=== PATIENT | male | born 2000 | race Caucasian/White ===

== ENCOUNTER 2024-05-27 08:19 | Outpatient (CLI) | payer OTHER, SELFPAY ==
--- OUTSIDE RECORDS SUMMARY | 2024-05-27 08:32 | XMS_ITS | Encounter Summary ---
Author Organization [facility] Address [address] [place] [address] Phone Care Team Providers Care Lumber Racker Name Role Phone Monique Brink MD Primary Care Provider [phone]- [phone] Encounter Details Date Type Department Care Team (Late st Contact Info) Description 04/23/2024 Lab Requisition [facility] [address] [place] [id number] Edouard Chacko MD [address] [place] [phone] [phone] Contact with and (suspected) exposure to unspecified communicable disease; Acute cough Social History Tobacco Use Types Packs/Day Years Used Date Smoking Tobacco: Never Smokeless Tobacco: Never Alcohol Use Standard Drinks/Week Comments Never 0 (1 standard drink = 0.6 oz pur e alcohol) Sex and Gender Information Value Date Recorded Sex Assigned at Not on file Legal Sex Male 10:14 PM CDT Gender Identity Not on file Sexual Orientation Not on file documented as of this encounter Plan of Treatment Not on file documented as of this encounter Procedures Procedure Name Priority Date/Time Associated Diagnosis Comments RSV,SARS-COV-2,INF LUENZA A&B BY PCR Routine 04/23/2024 6:33 AM BURGLAR ALARM INSTALLER Contact with and (suspected) exposure to unspecified communicable disease Acute cough documented in this encounter Results * (ABNORMAL) RSV,SARS-COV-2,INFLUENZA A&B BY PCR (04/23/2024 6:33 AM BURGLAR ALARM INSTALLER) FLU A Positive(A) Negative, Error 04/23/2024 9:14 AM BURGLAR ALARM INSTALLER [facility] FLU B Negative Negative 04/23/2024 9:14 AM BURGLAR ALARM INSTALLER [facility] RESP SYNC VIRUS Negative Negative 9:14 AM BURGLAR ALARM INSTALLER [facility] SARSCOV2 NOT DETECTED (Reference Range for this test is Not Detected) 04/23/2024 9:14 AM BURGLAR ALARM INSTALLER [facility] Comment:This test was perfor med by a Reverse Lime Filter Operator PCR Method. Swab Non-Phlebotomy Collection / Unknown 04/23/2024 6:33 AM BURGLAR ALARM INSTALLER 04/23/2024 8:18 AM BURGLAR ALARM INSTALLER Edouard Chacko MD MICROBIOLOGY - GENERAL ORDERAB LES Final Result [facility] [place] [address] documented in this encounter Visit Diagnoses Diagnosis Contact with and (suspected) exposure to unspecified communicable disease Acute cough documented in this encounter Additional Health Concerns Infection Onset Date Last Indicated Resolved Time Influenza 04/23/2024 04/23/2024 04/30/2024 12:1 8 AM BURGLAR ALARM INSTALLER documented as of this encounter Care Teams Lumber Racker Relationship Specialty Start Date End Date Monique Brink MD [address] [place] [id number] PCP - General Family Medicine 12/05/23 documented as of this encounter
--- OUTSIDE RECORDS SUMMARY | 2024-05-27 08:32 | XMS_ITS | Encounter Summary ---
Author Organization [facility] Address [address] [place] [address] Phone Care Team Providers Care Consultant Education Name Role Phone Moniqeu Brink MD Primary Care Provider [phone]- [phone] Encounter Details Date Type Department Care Team (Latest Contact Info) Description 01/30/2024 Lab Requisition [facility] [address] [place] [id number] Monique Brink MD [address] [facility] [place] [address] Mental disorder, not otherwise specified; Unspecified disorder of psychological development; Unspecified intellectual disabilities Social History Tobacco Use Types Packs/Day Years [...] on file documented as of this encounter Progress Notes * Monique Brink MD - 01/30/2024 8:16 AM CST Your thyroid tests and your cholesterol and triglycerides were all normal. TOOLER documented in this encounter Plan of Treatment Not on file documented as of this encounter Procedures Procedure Name Priority Date/Time Associated Diagnosis Comments THYROXINE (T4) TOTAL Routine 01/30/2024 6:48 AM GOLD TOOLER Mental disorder, not otherwise specified Unspecified disorder of psychological development Unspecified intellectual disabilities TRIIODOTHYRININE (T3) TOTAL Routine 01/30/2024 6:48 AM GOLD TOOLER Mental disorder, not otherwise specified Unspecified disorder of psychological development Unspecified intellectual disabilities LIPID PANEL Routine 01/30/2024 6:48 AM GOLD TOOLER Mental disorder, not otherwise specified Unspecified disorder of psychological development Unspecified intellectual disabilities documented in this encounter Results * THYROXINE (T4) TOTAL (01/30/2024 6:48 AM GOLD TOOLER) T4 7.6 5.0 - 11.0 mcg/dL 01/30/2024 9:38 AM GOLD TOOLER [facility] Blood Venipuncture / Unknown 01/30/2024 6:48 AM GOLD TOOLER 01/30/2024 8:17 AM GOLD TOOLER Monique Brink MD CHEMISTRY ORDERABLES Final Result [facility] [place] [address] * TRIIODOTHYRININE (T3) TOTAL (01/30/2024 6:48 AM GOLD TOOLER) T3 112 40 - 193 ng/dL 01/30/2024 3:14 PM GOLD TOOLER [facility] Blood Venipuncture / Unknown 01/30/2024 6:48 AM GOLD TOOLER 01/30/2024 8:17 AM GOLD TOOLER Monique Brink MD CHEMISTRY ORDERABLES Final Result [facility] [address] [place] [address], * LIPID PANEL (01/30/2024 6:48 AM GOLD TOOLER) CHOLESTEROL 144 <200 mg/dL 01/30/2024 9:26 AM GOLD TOOLER [facility] TRIGLYCERIDES 71 <150 mg/dL 01/30/2024 9:26 AM GOLD TOOLER [facility] HDL CHOLESTEROL 46 >40 mg/dL 9:26 AM GOLD TOOLER [facility] LDL 84 <130 mg/dL 01/30/2024 9:26 AM GOLD TOOLER [facility] VLDL 14 10 - 50 mg/dL 01/30/2024 9:26 AM GOLD TOOLER [facility] CHOL/HDL RATIO 3.1 0.0 - 4.4 01/30/2024 9:26 AM GOLD TOOLER [facility] NON-HDL CHOLESTEROL 98 <130 mg/dL 01/30/2024 9:26 AM GOLD TOOLER [facility] Blood Venipuncture / Unknown 01/30/2024 6:48 AM GOLD TOOLER 01/30/2024 8:17 AM GOLD TOOLER us Monique Brink MD CHEMISTRY ORDERABLES Final Result [facility] [place] [address] documented in this encounter Visit Diagnoses Diagnosis Mental disorder, not otherwise specified Unspecified disorder of psychological development Unspecified intellectual disabilities documented in this encounter Additional Health Concerns Infection Onset Date Last Indicated Resolved Time Influenza 04/23/2024 04/23/2024 04/30/2024 12:1 8 AM GOLD TOOLER documented as of this encounter Care Teams Consultant Education Relationship Specialty Start Date End Date Monique Brink MD [address] [place] [id number] PCP - General Family Medicine 12/05/23 documented as of this encounter
--- OUTSIDE RECORDS SUMMARY | 2024-05-27 08:32 | XMS_ITS | Continuity of Care Document ---
Author Organization [facility] Address [address] [place] [address] Phone Care Team Providers Care Cell Changer Name Role Phone Jarrod Fraga MD Unavailable Unavailable Allergies, Adverse Reactions, Alerts Substance Reaction Status Criticality No Known Allergies Active No Inform ation Medications Medication Instructions Dosage Effective Dates (start - stop) Status Comments Qvar RediHaler 40 mcg/actuation HFA breath activated aerosol inhale 2 puff by inhalation route 2 times every day 80 MCG - Active Ventolin HFA 90 mcg/actuation aerosol inhaler inhale 2 puff by inhalation route every 4 - 6 hours as needed - Active cetirizine 10 mg tablet take 1 tablet (1 0MG) by oral route every day - Active Aerochamber Administer inhaler a s directed - Active levothyroxine 75 mcg tablet take 1 tablet by oral route every day 75 MCG - Active Abilify 5 mg tablet take 1 tablet by ora l route 2 times every day 5 MG - Active lithium carbonate 600 mg capsule take 1 capsule (600MG) by oral route 3 times every day 600 MG - Active Procedures Procedure Date Est (Level 4) OFFICE/OUTPATIENT VISIT Fe Est (Level 3) OFFICE/OUTPATIENT VISIT Ja Est (Level 4) OFFICE/OUTPATIENT VISIT Se Est (Level 4) OFFICE/OUTPATIENT VISIT Ma Health Risk Assesment Patient Focused Ne PREVENTIVE COUNSELING, INDIV Est (Level 4) OFFICE/OUTPATIENT VISIT Au Flow Volume Loop Mouth piece Health Risk Assesment Patient Focused Au Est (Level 4) OFFICE/OUTPATIENT VISIT Fe Health Risk Assesment Patient Focused Est (Level 4) OFFICE/OUTPATIENT VISIT Au Mouth piece PREVENTIVE COUNSELING, INDIV Flow Volume Loop Health Risk Assesment Patient Focused Au Est (Level 4) OFFICE/OUTPATIENT VISIT Fe Health Risk Assesment Patient Focused Fe Est (Level 4) OFFICE/OUTPATIENT VISIT Au Flow Volume Loop Health Risk Assesment Patient Focused Au Mouth piece PREVENTIVE COUNSELING, INDIV Est (Level 4) OFFICE/OUTPATIENT VISIT Flow Volume Loop Est (Level 4) OFFICE/OUTPATIENT VISIT Flow Volume Loop Est (Level 4) OFFICE/OUTPATIENT VISIT Flow Volume Loop Est (Level 4) OFFICE/OUTPATIENT VISIT Flow Volume Loop Est (Level 4) OFFICE/OUTPATIENT VISIT Flow Volume Loop Est (Level 4) OFFICE/OUTPATIENT VISIT Flow Volume Loop Exhaled Nitric Oxide Louis Est (Level 4) OFFICE/OUTPATIENT VISIT De Est (Level 4) OFFICE/OUTPATIENT VISIT Pulmonary Function Screen Est (Level 4) OFFICE/OUTPATIENT VISIT Pulmonary Function Screen No Show/Missed Appointment Admin Inj Vaccine FLU VACCINE NO PRESERV 3 & > Pulmonary Function Screen Est (Level 4) OFFICE/OUTPATIENT VISIT Pulmonary Function Screen Est (Level 4) OFFICE/OUTPATIENT VISIT De Est (Level 4) OFFICE/OUTPATIENT VISIT Ju Pulmonary Function Screen Est (Level 4) OFFICE/OUTPATIENT VISIT Ja Est (Level 4) OFFICE/OUTPATIENT VISIT Au Pulmonary Function Screen Est (Level 4) OFFICE/OUTPATIENT VISIT Fe Est (Level 4) OFFICE/OUTPATIENT VISIT Se Admin Inj Vaccine FLU VACCINE NO PRESERV 3 & > Est (Level 4) OFFICE/OUTPATIENT VISIT Ap OFFICE/OUTPATIENT VISIT, EST OFFICE/OUTPATIENT VISIT, EST OFFICE/OUTPATIENT VISIT, EST OFFICE/OUTPATIENT VISIT, EST OFFICE/OUTPATIENT VISIT, EST Advance Directives Directive Yes / No Effective Date File Name No Information Encounters Encounter Description Practice Location Reason(s) For Visit Diagnoses Date Provider Providers Copied on Encounter Est (Level 4) OFFICE/OUTPA TIENT VISIT [facility], [address] [place] [address], [id number], tel:[phone] [facility] allergies and asthma (chief complaint) Perennial allergic rhinitisMild persistent asthma 3 Philly Garay. [address], [id number] , [place]. tel:[phone] Referring Provider: Joe Charles, [address] [facility] [address], [place], [address]. tel:[phone] Est (Level 3) OFFICE/OUTPA TIENT VISIT [facility], [address] [place] [address], [id number], tel:[phone] [facility] allergies and asthma (chief complaint) Mild persistent asthma 2 Philly Garay. [address], [id number] , . tel:[phone] Referring Provider: Kvng Alcantara, [address] [place] [address], [id number]. tel:[phone] [facility], [address] [place] [address], [id number], tel:[phone] [facility] No Information 2 Philly Garay. [address] [place] [address], [id number] , . tel:[phone] Referring Provider: Kvng Alcantara, [address] [place] [address], [address]. tel:[phone] Est (Level 4) OFFICE/OUTPA TIENT VISIT [facility], [address] [place] [address], [id number], tel:[phone] [facility] allergies and asthma (chief complaint) Mild persistent asthma Sep-0 0 Philly Garay. [address] [place] [address], [id number] , [place]. [phone] Referring Provider: Kvng Alcantara, [address] [place] [address], [address]. tel:[phone] Est (Level 4) OFFICE/OUTPA TIENT VISIT [facility], [address] [place] [address], [id number], tel:[phone] [facility] asthma and allergies (chief complaint) Mild persistent asthma Mar-0 0 Philly Garay. [address] [place] [address], [id number] , [place]. [phone] Referring Provider: Kvng Alcantara, [address] [place] [address], [address]. tel:[phone] Est (Level 4) OFFICE/OUTPA TIENT VISIT [facility], [address] [place] [address], [id number], tel:[phone] [facility] asthma (chief complaint) Moderate persistent asthma 9 Philly Garay. [address] [place] [address], [id number] , . tel:[phone] Referring Provider: Kvng Alcantara, [address] [place] [address], [address]. tel:[phone] Est (Level 4) OFFICE/OUTPA TIENT VISIT [facility], [address] [place] [address], [address] [place] [address], tel:[phone] [facility] AR and asthma (chief complaint) Allergic rhinitis, unspecifiedUnspe cified asthma, uncomplicated Fe 9 Philly Garay. [address] [place] [address], [address] [place] [address] , [place]. tel:[phone] Referring Provider: Kvng Alcantara, [address] [place] [address], [address]. tel:[phone] Est (Level 4) OFFICE/OUTPA TIENT VISIT [facility], [address] [place] [address], [id number], [place] tel:[phone] [facility] allergic rhinitis and athma (chief complaint) Allergic rhinitis, unspecifiedMild persistent asthma 8 Philly Garay. [address] [place] [address], [id number] , [place]. tel:[phone] Referring Provider: Kvng Alcantara, [address] [place] [address], [address]. tel:[phone] Est (Level 4) OFFICE/OUTPA TIENT VISIT [facility], [address] [place] [address], [id number], [place] tel:[phone] [facility] allergic rhinitis and asthma (chief complaint) Allergic rhinitis, unspecifiedUnspe cified asthma, uncomplicated Feb-0 8 Philly Garay. [address] [place] [address], [id number] , [place]. tel:[phone] Referring Provider: Kvng Alcantara, [address] [place], [address]. tel:[phone] Est (Level 4) OFFICE/OUTPA TIENT VISIT [facility], [address] [place] [address], [id number], tel:[phone] [facility] allergic rhinitis and asthma (chief complaint) Allergic rhinitis, unspecifiedUnspe cified asthma, uncomplicated 7 Philly Garay. [address] [place] [address], [id number] , [place]. tel:[phone] Referring Provider: Kvng Alcantara, [address] [place], [address]. tel:[phone] Est (Level 4) OFFICE/OUTPA TIENT VISIT [facility], [address] [place] [address], [id number], tel:[phone] [facility] allergic rhinitis and asthma (chief complaint) Upper respiratory infectionAllergi c rhinitis, unspecifiedUnspe cified asthma, uncomplicated 7 Philly Garay. [address] [place] [address], [id number] , [place]. tel:[phone] Referring Provider: Jesse Lozoya, [facility] [place], [address]. tel:[phone] Est (Level 4) OFFICE/OUTPA TIENT VISIT [facility], [address] [place] [address], [id number], [place] tel:[phone] [facility] allergies and asthma (chief complaint) Allergic rhinitis, unspecifiedMild persistent asthma 6 Philly Garay. [address] [place] [address], [id number] , [place]. tel:[phone] Referring Provider: Jesse Lozoya, [address] [place], [address]. tel:[phone] Est (Level 4) OFFICE/OUTPA TIENT VISIT [facility], [address] [place] [address], [id number], tel:[phone] [facility] allergic rhinitis and asthma (chief complaint) Upper respiratory infectionAllergi c rhinitis, unspecifiedModer ate persistent asthma 6 Philly Jarrod. [address] [place] [address], [id number] , [place]. tel: [phone] Referring Provider: Jesse Lozoya, [address] [place] [address], [address]. tel:[phone] Est (Level 4) OFFICE/OUTPA TIENT VISIT [facility], [address] [place] [address], [id number], tel:[phone] [facility] allergic rhinitis and asthma (chief complaint) Allergic rhinitis, cause unspecifiedAsthm a 5 Philly Garay. [address] [place] [address], [id number] , [place]. tel: [phone] Referring Provider: Jesse Lozoya, [address] [place] [address], [address]. tel:[phone] Est (Level 4) OFFICE/OUTPA TIENT VISIT [facility], [address] [place] [address], [id number], tel:[phone] [facility] Allergic rhinitis and asthma (chief complaint) Allergic rhinitis, cause unspecifiedAsthm a 5 Philly Garay. [address] [place] [address], [id number] , [place]. tel:[phone] Referring Provider: Jesse Lozoya, [address] [place] [address], [address]. tel:[phone] Est (Level 4) OFFICE/OUTPA TIENT VISIT [facility], [address] [place] [address], [id number], [place] tel:[phone] [facility] allergic rhinitis and asthma (chief complaint) Other conditions due to sex chromosome anomaliesAllergi c rhinitis, cause unspecifiedAsthm a 4 Philly Garay. [address] [place] [address], [id number] , . tel:[phone] Referring Provider: Jesse Lozoya, [address] [place] [address], [address]. tel:[phone] Est (Level 4) OFFICE/OUTPA TIENT VISIT [facility], [address] [place] [address], [id number], [place] tel:[phone] [facility] allergic rhinitis and asthma (chief complaint) Upper Respiratory Infection, AcuteAllergic rhinitis, cause unspecifiedAsthm a 3 Philly Garay. [address] [place] [address], [id number] , [place]. tel:[phone] Referring Provider: Jesse Lozoya, [address] [place] [address], [address]. tel:[phone] Est (Level 4) OFFICE/OUTPA TIENT VISIT [facility], [address] [place] [address], [id number], [place] tel:[phone] [facility] allergic rhinitis and asthma (chief complaint) Allergic rhinitis, cause unspecifiedAsthm a 3 Philly Gaary. [address] [place] [address], [id number] , [place]. tel:[phone] Referring Provider: Jesse Lozoya, [address] [place] [address], [address]. tel:[phone] Est (Level 4) OFFICE/OUTPA TIENT VISIT [facility], [address] [place] [address], [id number], [place] tel:[phone] [facility] allergic rhinitis (chief complaint)a sthma (chief complaint) Allergic rhinitis, cause unspecifiedAsthm a 3 Philly Garay. [address] [place] [address], [id number] , . tel:[phone] Referring Provider: Jesse Lozoya, [address] [place] [address], [address]. tel:[phone] [facility], [address] [place] [address], [address] [place] [address], tel:[phone] [facility] No Information 2 Philly Garay. [address] [place] [address], [address] [place] [address] , . tel:[phone] Referring Provider: Jesse Lozoya, [address] [place] [address], [address]. tel:[phone] [facility], [address] [place] [address], [address] [place] [address], tel:[phone] [facility] No Information 2 Philly Garay. [address] [place] [address], [address] [place] [address] , . tel:[phone] Referring Provider: Jesse Lozoya, [address] [place] [address], [address]. tel:[phone] Est (Level 4) OFFICE/OUTPA TIENT VISIT [facility], [address] [place] [address], [id number], tel:[phone] [facility] allergies (chief complaint)a sthma (chief complaint) OtherAllergic rhinitis, cause unspecifiedASTHM A,UNSPECIFIED TYPE, UNSPECIFIEDRash and other nonspecific skin eruption 2 Philly Garay. [address] [place] [address], [id number] , . tel:[phone] Referring Provider: Jesse Lozoya, [address] [place] [address], [address]. tel:[phone] Est (Level 4) OFFICE/OUTPA TIENT VISIT [facility], [address] [place] [address], [id number], tel:[phone] [facility] allergies (chief complaint)a sthma (chief complaint) Allergic rhinitis, cause unspecifiedASTHM A,UNSPECIFIED TYPE, UNSPECIFIED 1 Philly Garay. [address] [place] [address], [address], [address] [place] [address] , . tel:[phone] Referring Provider: Jesse Lozoya, [address] [place] [address], [address]. tel:[phone] Est (Level 4) OFFICE/OUTPA TIENT VISIT [facility], [address] [place] [address], [address] [place] [address], tel:[phone] [facility] allergies (chief complaint)a sthma (chief complaint)e czema (chief complaint) Allergic rhinitis, cause unspecifiedASTHM A,UNSPECIFIED TYPE, UNSPECIFIEDOther atopic dermatitis and related conditions 1 Philly Garay. [address] [place] [address], [address], [address] [place] [address] , . tel:[phone] Referring Provider: Jesse Lozoya, [address] [place] [address], [address]. tel:[phone] Est (Level 4) OFFICE/OUTPA TIENT VISIT [facility], [address] [place] [address], [id number], tel:[phone] [facility] allergies (chief complaint)a sthma (chief complaint) Acute suppurative otitis media without spontaneous rupture of eardrumAllergic rhinitis, cause unspecifiedASTHM A,UNSPECIFIED TYPE, UNSPECIFIED 1 Philly Garay. [address] [place] [address], [id number] , . tel:[phone] Referring Provider: Jesse Lozoya, [address] [place] [address], [address]. tel:[phone] Est (Level 4) OFFICE/OUTPA TIENT VISIT [facility], [address] [place] [address], [id number], tel:[phone] [facility] allergies (chief complaint)a sthma (chief complaint)a topic dermatitis (chief complaint) Allergic rhinitis, cause unspecifiedASTHM A,UNSPECIFIED TYPE, UNSPECIFIED 0 Remaparish Jarrod. [address] [place] [address], [id number] , . tel:[phone] Referring Provider: Jesse Lozoya, [address] [place] [address], [address]. tel:[phone] Est (Level 4) OFFICE/OUTPA TIENT VISIT [facility], [address] [place] [address], [id number], tel:[phone] [facility] allergies (chief complaint)a sthma (chief complaint) ASTHMA,UNSPECIFI ED TYPE, UNSPECIFIEDAller gic rhinitis, cause unspecified 0 Remaparish aJrrod. [address] [place] [address], [id number] , . [phone] Referring Provider: Jesse Lozoya, [address] [place] [address], [address]. tel:[phone] [facility], [address] [place] [address], [id number], tel:[phone] [facility] No Information 9 Remaparish Jarrod. [address] [place] [address], [id number] , [place]. [phone] Referring Provider: Jesse Lozoya, [address] [place] [address], [address]. tel:[phone] Est (Level 4) OFFICE/OUTPA TIENT VISIT [facility], [address] [place] [address], [id number], tel:[phone] [facility] asthma (chief complaint)a llergies (chief complaint) Allergic rhinitis, cause unspecifiedAcute upper respiratory infections of unspecified siteASTHMA,UNSPE CIFIED TYPE, UNSPECIFIED Nov- 2 9 Philly Garay. [address] [place] [address], [id number] , . tel:[phone] Referring Provider: Jesse Lozoya, [address] [place] [address], [address]. tel:[phone] Est (Level 4) OFFICE/OUTPA TIENT VISIT [facility], [address] [place] [address], [id number], tel:[phone] [facility] asthma (chief complaint)a llergies (chief complaint) Allergic rhinitis, cause unspecifiedASTHM A,UNSPECIFIED TYPE, UNSPECIFIED 0 9 Philly Garay. [address] [place] [address], [id number] , . tel: [phone] Referring Provider: Jesse Lozoya, [address] [place] [address], [address]. tel:[phone] OFFICE/OUTPA TIENT VISIT, EST [facility], [address] [place] [address], [id number], [place] tel:[phone] [facility] asthma (chief complaint)a llergies (chief complaint) Allergic rhinitis, cause unspecifiedASTHM A,UNSPECIFIED TYPE, UNSPECIFIED 2 9 Philly Garay. [address] [place] [address], [id number] , [place]. tel:[phone] Referring Provider: Jesse Lozoya, [address] [place] [address], [address]. tel:[phone] OFFICE/OUTPA TIENT VISIT, EST [facility], [address] [place] [address], [id number], tel:[phone] [facility] allergies (chief complaint)a sthma (chief complaint) No Information 6 8 Philly Garay. [address] [place] [address], [id number] , . tel:[phone] Referring Provider: Jesse Lozoya, [address] [place] [address], [address]. tel:[phone] OFFICE/OUTPA TIENT VISIT, EST [facility], [address] [place] [address], [id number], tel:[phone] [facility] asthma (chief complaint)a llergies (chief complaint) No Information 8 Philly Garay. [address] [place] [address], [id number] , . tel:[phone] Referring Provider: Jesse Lozoya, [address] [place] [address], [address]. tel:[phone] OFFICE/OUTPA TIENT VISIT, EST [facility], [address] [place] [address], [id number], tel:[phone] [facility] allergies (chief complaint)a sthma (chief complaint)a llergies (chief complaint) No Information 7 Philly Garay. [address] [place] [address], [id number] , [place]. tel:[phone] Referring Provider: Jesse Lozoya, [address] [place] [address], [address]. tel:[phone] OFFICE/OUTPA TIENT VISIT, EST [facility], [address] [place] [address], [id number], tel:[phone] [facility] allergies (chief complaint)a sthma (chief complaint)r hinitis allergic (chief complaint)e czema (chief complaint) ASTHMA,UNSPECIFI ED TYPE, UNSPECIFIEDAller gic rhinitis, cause unspecifiedOther atopic dermatitis and related conditionsAllerg ic rhinitis, cause unspecifiedOther atopic dermatitis and related conditions 3200 7 Philly Garay. [address] [place] [address], [id number] , . tel:[phone] Referring Provider: Jesse Lozoya, [address] [place], [address]. tel:[phone] Family History Family Member Type Diagnosis Age At Onset No Information Immunizations Vaccine Date Status Comments influenza virus vaccine, unspecified formulation administered Source: Source U nspecified Moderna Covid 19 mRNA Vaccine administere d Source: Source Unspecified SARS-COV-2 (COVID-19) vaccin e, mRNA, spike protein, LNP, preservative free, 30 mcg/0.3mL dose (Pfizer) administered Source: Source U nspecified SARS-COV-2 (COVID-19) vaccin e, mRNA, spike protein, LNP, preservative free, 30 mcg/0.3mL dose (Pfizer) administered Source: Source U nspecified Fluarix administered Note: Dr. Berman ; Source: Other Provider Influenza, injectable, quadrivalent, preservative free, 3 yrs or older administered Source: Other Provi rishi Influenza, injectable, quadrivalent, preservative free, 3 yrs or older administered Source: Other Provi rishi Influenza virus vaccine administered Sour ce: New Immunization Record Influenza virus vaccine administered Sour ce: New Immunization Record Payers Payer name Insurance type Covered constitution party ID Authoriza tiotoniel(s) Nina CI [id number] [id number] Social History Type Description Quantity Date Captured Comments Alcohol Use Details Unknown Caffeine Use Details Unknown Tobacco Use Status Never smoked tobacco 2022 Smoking Status Never smoker Non-Smoking Tobacco Use Details : No Details Available : No Details Available Sex Male Chief Complaint And Reason For Visit From encounter dated '04/26/2022 14:40'. allergies and asthma (chief complaint). Description: He returns for an annual visit. He has been under my care for allergic rhinitis and asthma since 2006. When seen last year he had changed from QVar to Flovent 44 due to formulary coverage. He is now back on QVar 40 once a day. He rarely has had to use albuterol. Dad reports that he was at an overnight summer camp last year and had no troubles while there. he remains on 1/2 of a 10 mg cetirizine daily. He still has 3 cats and reports that theydo not bother him. he has had no infections in the past year. He is in school and works 2 hours a day at [employer]. His allergies and asthma have not been disruptive at school or at work. Reason For Referral Reason For Referral No Information History Of Present Illness Encounter Date Complaint History Of Prese nt Illness allergies and asthma He returns for an annual visit. He has been under my care for allergic rhinitis and asthma since 2006. When seen last year he had changed from QVar to Flovent 44 due to formulary coverage. He is now back on QVar 40 once a day. He rarely has had to use albuterol. Dad reports that he was at an overnight summer camp last year and had no troubles while there. he remains on 1/2 of a 10 mg cetirizine daily. He still has 3 cats and reports that they do not bother him. he has had no infections in the past year. He is in school and works 2 hours a day at [employer]. His allergies and asthma have not been disruptive at school or at work. allergies and asthma This visit takes place over [employer] video platform ([employer]) with the patient in their homeHis father reports that he has been well for the past year. He has had no infections. He has had no shortness of breath and has not required albuterol. he is using QVar 2 puffs at night only. It is no longer covered and they require an alternative. He uses 1/2 Zyrtec daily. He does not use nasal steroids. They have 3 cats and he does not seem to be affected. He is in high school and will attend one more year. 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 allergies and asthma He returns for a 6 month follow up visit. He remains on Zyrtec and once daily QVar. He has not had any flare of asthma and rarely uses albuterol. He will be schooling at home this year. He has had no infections. He obtained his flu vaccine yesterday. asthma and allergies He returns for a 6 month follow up. He remains on daily Zyrtec and once daily QVar. He recently had a cold with cough. He has used albuterol intermittently but did not increase his use of QVar. He uses fluticasone nasal spray infrequently--when he feels congested. He has otherwise been well. asthma He returns for a 6 month follow up visit. He attended 2 summer camps. He uses QVar bid during those camps, but otherwise has used it only daily. He has not had any exacerbations or respiratory infections. He remains on Zyrtec and Flonase daily. 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 AR and asthma He returns for a 6 month follow up. He has one cold over the winter that was managed by increasing QVar to bid. Otherwise he has continued daily use. He is using Ventolin after he is in the basement with the cats. Has an Xbox in basement. There are 3 cats in the basement. He does not have wheezing after exposure but dad feels better about using the Ventolin after exposure. He continues to use fluticasone and Zyrtec daily. He will attend a couple of summer camps away from [facility] and dad requests a new Action Plan and completed forms for use of medications at camp. allergic rhinitis and athma He r eturns for a 6 month follow up. Dad reports that his nasal symptoms have continued to improve. He no longer seems to have nasal congestion or rhinorrhea. He remains on Zyrtec and fluticasone nasal spray daily. He has not had any respiratory infections. He remains on QVar 40 2 puffs once a day. Dad increased the dose during a trip to [place] for a week. He has used Ventolin only on poor air quality days before playing outdoors. He now has 3 cats, but reports that exposure to the cats and even dogs does not affect him much. allergic rhinitis and asthma He returns for a 6 month follow up. He remains on QVar 40, 2 puffs once a day. He increased to twice a day in February when he had a viral URI, but otherwise has used it once a day. He used albuterol only in February with the URI. He has been hiking with his father, and reports that exertion does not trigger symptoms of asthma. He still has a cat and has some nasal symptoms when he plays video games in the basement where the cat lives. He is using fluticasone and Zyrtec only intemittently. allergic rhinitis and asthma He returns for an annual visit. He has been well since his last visit 6 months ago. He still has 3 cats. He continues to use fluticasone nasal spray and Zyrtec daily. He is on QVar 40, 2 puffs once a day. He rarely uses albuterol. He and his family took a recent vacation to [place] and his asthma was unaffected. He did use albuterol each morning before activities. He has no new complaints. allergic rhinitis and asthma He has had a could for about 5 days. He has had cough, runny nose--secretions have varied from green to yellow (dad notes they are clear). Smell and taste are subjectively OK. He has not missed school. His sleep has not been interrupted. He is on QVar once a day, and he is using ProAir at bedtime.He has not been on antibiotics since his last visit. He had a flu vaccine in November. allergies and asthma He returns for a 6 month follow up. He has not had any flare of asthma or respiratory infection. He remains on fluticasone nasal spray and Zyrtec once a day, and he is using QVar 40 2 puffs twice a day. He has rarely used ProAir. He last used it when they were on vacation in [place]. Dad was afraid that the altitude would affect his asthma, but it did not. allergic rhinitis and asthma He returns for a 6 month follow up. He has had a cold for the past week. He has had some couging, runny nose and wheezing. The nasal discharge has been mostly clear. Smell and taste are OK. He woke one nigth at 4 am due to couging . He missed 1 day of school. He returned to school yesterday. He has been compliant with QVar bid. He has been using Ventolin more often in the past week due to his cold .He has been on fluticasone daily .He has not had any acute exacerbations in the past 6 months. He had a flu vaccine in the fall. allergic rhinitis and asthma Michael gaytan returns for a scheduled visit. He recently had a flare of his asthma around September 18 and was treated with a course of prednisone. He is now improved. At his last visit we had discussed a need to change from Flovent to QVar based on formulary coverage. In May dad called and apparently requested a prescription for an alternative to ProAir (not Flovent), and we prescribed Ventolin. Raúl then used Ventolin bid in place of an ICS, and only realized the error after his exacerbation in September. He is now currently on QVar bid via a spacer.He has not had any respiratory infections. He still has a cat at home. Allergic rhinitis and asthma He returns for a 6 month follow up visit. He has been well since his last visit. He has not had any respiratory infections. He remains on Zyrtec and fluticasone nasal spray daily. He still has a cat. He is using Flovent 44 twice daily. It is no longer preferred, and we have discussed changing to QVar when he needs a refill. He rarely uses albuterol. He has not missed school due to respiratory illness. He received a flu vaccine in the fall. He has no new complaints. Functional Status Date Functional Assessmen t No Information Instructions Date Instruction Additional Infor ivana No Information Assessments Type Assessment Date assessment Perennial allergic rhinitis assessment Mild persistent asthma 23 Patient Care Teams Name Effective Dates (start - stop) Status Members No Information
--- OUTSIDE RECORDS SUMMARY | 2024-05-27 08:32 | XMS_ITS | Clinical Summary ---
Author Organization [facility] Address [address] [place] [address] Phone Care Team Providers Care House Player Name Role Phone Monique Brink MD Primary Care Provider [phone] Allergies Active Allergy Reactions Criticality Noted Date Comments Other-Environmental Allergen (Not Found In Search) Unknown 01/04/2024 arexvy vaccine Other-Food Allergen (Not Fou nd In Search) Unknown 01/04/2024 abrysvo vaccine Medications No known medications Active Problems Problem Noted Date Diagnosed Date At medium risk for suicide 01/16/2024 Encounters Date Type Department Care Team Description 04/25/2024 Telephone [facility] - Primary Care - [place] [address] [place] [address] Brielle Vernon APRN, GURVINDER 04/23/2024 Lab Requisition [facility] [address] [place] [id number] Edouard Chacko MD Contact with and (suspected) exposure to unspecified communicable disease; Acute cough from Last 3 Months Social History Tobacco Use Types Packs/Day Years Used Date Smoking Tobacco: Never Smokeless Tobacco: Never Tobacco Cessation:Counseling Given: Not Answered Alcohol Use Standard Drinks/Week Comments Never 0 (1 standard drink = 0.6 oz pur e alcohol) Sex and Gender Information Value Date Recorded Sex Assigned at Not on file Legal Sex Male 10:14 PM CDT Gender Identity Not on file Sexual Orientation Not on file Last Filed Vital Signs Vital Sign Reading Time Taken Comments Blood Pressure 116/63 01/16/2024 3:20 PM CDT Pulse 75 01/16/2024 3:20 PM CDT Temperature 36.7 C (98.1 F) 01/16/2024 3:20 PM CDT Respiratory Rate 22 01/16/2024 3:20 PM CDT Oxygen Saturation 98% 01/16/2024 3:20 PM CDT Inhaled Oxygen Concentration - - Weight 64.6 kg (142 lb 8 oz) 01/16/2024 3:20 PM CDT Height 177.8 cm (5' 10 ) 01/04/2024 2:00 PM CDT Body Mass Index 20.45 01/04/2024 2:00 PM CDT Plan of Treatment Health Maintenance Due Date Last Done Comments Hepatitis C Virus (HCV) Screening 2002 TdaP Immunization 2002 Human Papillomavirus (HPV) Immunization (2 - Male 2-dose series) 12/06/2013 06/05/2013 Meningococcal B Immunization (2 of 2 - Bexsero SCDM 2-dose series) 12/05/2018 06/04/2018 Influenza Immunization (#1) 2023 11/17/2017 SARS-COV-2 Immunization ( season) 2023 03/01/2021, 07/03/2020, 06/12/2020 Respiratory Syncytial Virus (RSV) Immunization (Adult) (1 - 1-dose 75+ series) 2077 Hepatitis B Immunization Completed 003, 2002, 2002 Meningococcal Immunization (ACWY) Completed 06/04/2018 Pneumococcal Immunization Combined Aged Out 06/15/2022, 03/26/2003, 2002, Additional history exists No longer eligible based on patient's age to complete this topic Rotavirus Immunization Aged Out No lo nger eligible based on patient's age to complete this topic Procedures Procedure Name Priority Date/Time Associated Diagnosis Comments RSV,SARS-COV-2,INF LUENZA A&B BY PCR Routine 04/23/2024 6:33 AM CITY DISPATCH SUPERVISOR Contact with and (suspected) exposure to unspecified communicable disease Acute cough from Last 3 Months Results * (ABNORMAL) RSV,SARS-COV-2,INFLUENZA A&B BY PCR (04/23/2024 6:33 AM CITY DISPATCH SUPERVISOR) FLU A Positive(A) Negative, Error 04/23/2024 9:14 AM CITY DISPATCH SUPERVISOR [facility] FLU B Negative Negative 04/23/2024 9:14 AM CITY DISPATCH SUPERVISOR [facility] RESP SYNC VIRUS Negative Negative 9:14 AM CITY DISPATCH SUPERVISOR [facility] SARSCOV2 NOT DETECTED (Reference Range for this test is Not Detected) 04/23/2024 9:14 AM CITY DISPATCH SUPERVISOR [facility] Comment:This test was perfor med by a [employer] Professional PCR Method. Swab Non-Phlebotomy Collection / Unknown 04/23/2024 6:33 AM CITY DISPATCH SUPERVISOR 04/23/2024 8:18 AM CITY DISPATCH SUPERVISOR Edouard Chacko MD MICROBIOLOGY - GENERAL ORDERAB LES Final Result [facility] [place] [address] from Last 3 Months Insurance MEDICARE C [employer] Care Teams House Player Relationship Specialty Start Date End Date Monique Brink MD [address] [place] [id number] PCP - General Family Medicine 12/05/23
--- OUTSIDE RECORDS SUMMARY | 2024-05-27 08:32 | XMS_ITS | Continuity of Care Document ---
Author Organization [facility] Address [address] [place] [address] Phone Care Team Providers Care Automatic Head Sawyer Name Role Phone Keenan Carreno DO Unavailable Unavailable Medications Medication Instructions Dosage Effective Dates (start - stop) Status Comments aripiprazole 5 mg tablet take 1 tablet by oral route every day 5 MG - Active aripiprazole 10 mg tablet take 1 tablet by oral route every day 10 MG - Active cetirizine 5 mg tablet take 1 tablet by oral route every day 5 MG - Active Procedures Procedure Date Pt inelig neg scrn depres OFFICE [id number] BODY MASS INDEX DOCD SYST BP LT 130 MM HG DIAST BP < 80 MM HG Advance Directives Directive Yes / No Effective Date File Name No Information Encounters Encounter Description Practice Location Reason(s) For Visit Diagnoses Date Provider Providers Copied on Encounter [facility], [address], [place], [place], [id number] , tel: [phone] [facility] No Information 4 Wai Hussein. [address], [address], [place], [place], [address], [place]. tel:[phone] [facility], [address], [place], [place], [address] , tel: [phone] [facility] No Information 3 Cy Barrett. [address], [address], [place], [address], [place]. tel:[phone] OFFICE [id number] MP[facility], [address], [place], [place], [id number] , [place] tel: [phone] [facility] New pt (chief complaint) Bipolar affective disorder, remission status unspecifiedNon- seasonal allergic rhinitis, unspecified triggerAcquired hypothyroidismM ental disability Nov- 3 Wai Hussein. [address], [address], [place], [place], [id number], [place]. tel:[phone] Referring Provider: Keenan Carreno, [address], [place], [address] . tel:[phone] Family History Family Member Type Diagnosis Age At Onset No Information Immunizations Vaccine Date Status Comments Influenza, injectable, MDCK, preservative free, quadrivalent administered Source: Other Provider Payers Payer name Insurance type Covered alliance party ID Authoriza tion(s) No Information Social History Type Description Quantity Date Captured Comments Alcohol Use Details Unknown Caffeine Use Details Unknown Tobacco Use Status No Information Smoking Status No Information Sex Male Chief Complaint And Reason For Visit No Information Reason For Referral Reason For Referral No Information History Of Present Illness Encounter Date Complaint History Of Prese nt Illness New pt New pt here to g et establishedPrevious PMD: Dr. Ricketts, twice on [place], before that it was at [facility] for pediatrics. Dr. Shereen Thornton is his psychiatrist adn previous doctor was Sylvester Mckeon. PMH: Hypothyroidism from [place], bipolar d/o, alcohol syndrome. PSH: NoneSocHx: Unemployed, disabled. No tobacco or alcohol FH: AdoptedBipolar disorder on same medicines for quite a while. Has blood test for [place] monitoring every 3 months, Allergies - sees Dr. Fraga for allergies. Allergies to dog and has been seeing children's librarian since he was 7 years old. Used inhalers until about 7 years ago, had asthma as a child. Still has an albuterol to use in emergencies. Feeling well and not having any problems today. Goes to [facility] and trying to get into [facility] in [place] for institutionalized individuals to go live. Functional Status Date Functional Assessmen t No Information Instructions Date Instruction Additional Infor ivana Symptoms consistent with alcohol syndrome. Trying to get into [employer] [employer] in [place], [place] Related to Mental disability Continue cetirazine. Has seen Dr. Fraga. Will request records. Related to Non-seasonal allergic rhinitis, unspecified trigger From lithium side ef fect. Continue lithium and get most recent labs. Related to Acquired hypothyroidism Continue lithium and aripiprazole. Followed by Dr. Thornton Related to Bipolar affective disorder, remission status unspecified Disease process Assessments Type Assessment Date No Information Patient Care Teams Name Effective Dates (start - stop) Status Members No Information
== END 2024-05-27 08:20 | disposition home or self-care (01) ==
LOC: ANHBWCAUD 08:20
PROVIDERS: PCP Family Medicine; Visit Provider Family Medicine
DX: H73.892 Other specified disorders of tympanic membrane, left ear (principal); H61.22 Impacted cerumen, left ear; H93.8X2 Other specified disorders of left ear
CPT/HCPCS: 92557; 92567